=== PATIENT | female | born 1945 | race Caucasian/White ===

== ENCOUNTER 2016-12-08 09:29 | Outpatient (CLI) | payer MEDICARE ==
--- NOTE | 2016-12-08 14:10 | CT ---
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 FINDINGS: Axial images are obtained with coronal and sagittal reconstructions obtained. The frontal, ethmoid, maxillary, and sphenoid sinuses are well aerated. No evidence of masses or le sions seen in the nasal cavity. The cribriform plate appears to be unremarkable. The keila jesse is unremarkable. IMPRESSION: 1. Normal CT of sinuses and cribriform plate. 2. Incidentally noted bilateral briana bullosa changes seen in the middle turbinates. The nasal se ptum has mild [id number] septal deviation. POS: [facility]
== END 2016-12-08 09:30 | disposition home or self-care (01) ==
LOC: MADCT 09:29
DX: R43.0 Anosmia (principal)

== ENCOUNTER 2017-04-23 09:16 | Outpatient (CLI) | payer MEDICARE ==
[2017-04-23 09:59] LABS: ALT (SGPT) 13 U/L (8-55); AST (SGOT) 18 U/L (5-34); Albumin 3.6 g/dL (3.4-4.8); Alkaline Phosphatase 101 U/L (40-150); Anion Gap 10 mmol/L (10-20); BUN (Urea Nitrogen) 16 mg/dL (9.8-20.1); Bilirubin, Total 0.7 mg/dL (0.2-1.2); Calc. Creatinine Clearance 0 mL/min (70-130); Calcium 9.2 mg/dL (7.8-10.44); Carbon Dioxide 28 mmol/L (23-31); Cardiac Risk 2.9 (Less than 4.5); Chloride 107 mmol/L (98-107); Cholesterol 182 mg/dl (< 200 Desired); Estimated GFR-MDRD Greater than 90; Globulin 2.9 g/dL (2.4-3.5); Glucose 99 mg/dL (83-110); HDL Cholesterol 63 mg/dL (>60 Neg Risk); LDL Cholesterol, Calculated 102 mg/dL; Magnesium 1.9 mg/dL (1.6-2.6); Potassium 4.4 mmol/L (3.5-5.1); Protein, Total 6.5 g/dL (6.0-8.3); Sodium 141 mmol/L (136-145); Triglycerides 87 mg/dL (Less than 150)
== END 2017-04-23 09:17 | disposition home or self-care (01) ==
LOC: MADLAB 09:16
DX: I11.9 Hypertensive heart disease without heart failure (principal); I48.91 Unspecified atrial fibrillation; I34.0 Nonrheumatic mitral (valve) insufficiency; I49.40 Unspecified premature depolarization; R00.1 Bradycardia, unspecified
CPT/HCPCS: 36415; 80053; 80061; 83735

== ENCOUNTER 2018-01-08 11:53 | Outpatient (CLI) | payer MEDICARE | END 2018-01-08 11:54 | disposition home or self-care (01) | LOC: MADLAB 11:53 | PROVIDERS: ATTEND Internal Medicine Gastroenterology | DX: R10.84 Generalized abdominal pain (principal) | CPT/HCPCS: 82274 ==

== ENCOUNTER 2019-04-18 15:07 | Inpatient (IN) | payer MEDICARE ==
[2019-04-18 15:33] VITALS: BMI 33.0
[2019-04-18] MEDS ORDERED: traMADol HCl 50 MG TAB PO PRN (17:38)
[2019-04-18] MEDS ORDERED: Docusate 100 MG CAP PO PRN (17:38)
[2019-04-18] MEDS ORDERED: Zolpidem Tartrate 5 MG TAB PO PRN (17:38)
[2019-04-18] MEDS ORDERED: traMADol HCl 50 MG TAB PO SCH (18:00)
[2019-04-18] MEDS: HYDROcodone/Acetaminophen 10/325 mg Tablet PO PRN (19:49)
[2019-04-18] MEDS: Metoprolol Tartrate 25 MG TAB PO SCH (20:21)
[2019-04-18] MEDS ORDERED: diphenhydrAMINE 25 MG CAP PO SCH (21:00)
[2019-04-18] MEDS ORDERED: Acetaminophen 500 MG TAB PO SCH (21:00)
--- NOTE | 2019-04-19 01:23 | HP ---
PRIMARY CARE PHYSICIAN: Dr. Isaac in the [place]. ORTHOPEDICS: Dr. Oneal. REASON FOR ADMISSION: Skilled rehab in [facility] post surgery. HISTORY OF PRESENT ILLNESS AND HOSPITAL COURSE: Ms. Feliciano is a very pleasant 74-year-old female with significant history of chronic bilateral knee pain associated with progressively worsening arthritis in both knees noted for several years. After following up with her Ortho, Dr. Oneal, she decided to undergo surgical management this time as pain has been debilitating for her. The patient underwent bilateral total knee replacement for bilateral severe arthritis of knees on 04/15/2019. Postoperative course was unremarkable. The patient is weightbearing as tolerated and started putting some weight without significant issues. Overall, pain is adequately controlled with [place] alone. The patient reports that she does not take tramadol, which is part of her discharge medications, so we will cancel. No significant issues at this point. She just wanted to make sure that she will continuously get the ice pack for both knees as recommended from the hospital and will get her scheduled benadryl at bedtime for her insomnia. PAST MEDICAL HISTORY: Atrial fibrillation, on Xarelto and metoprolol; morbid obesity, status post gastric sleeves. CURRENT MEDICATIONS: 1. Acetaminophen with diphenhydramine 2 tablets at bedtime for insomnia. 2. Docusate 100 mg p.o. b.i.d. p.r.n. 3. Ferrous sulfate 325 mg p.o. b.i.d. 4. Hydrocodone/acetaminophen 10/325 mg p.o. q.4 hours p.r.n. 5. Metoprolol 25 mg p.o. b.i.d. 6. Ranitidine 150 mg p.o. daily. 7. Zolpidem tartrate 5 mg p.o. at bedtime p.r.n. PAST SURGICAL HISTORY: Appendectomy in 1968, right knee surgery in 1999, hysterectomy in 2000, left ankle surgery in 2011, right shoulder surgery in 1989 , right shoulder surgery in 2014, gastric sleeves in 2014, left carpal tunnel repair, heart LINQ implant in 2017. FAMILY HISTORY: Father has heart disease. Mother has heart disease and diabetes. SOCIAL HISTORY: Does not smoke. Occasional alcohol intake in the past. No illicit drug use. ALLERGIES: NKDA. REVIEW OF SYSTEMS: GENERAL: Denies fever, chills, lethargy. Reports decreased appetite noted since this recent hospitalization. HEENT: No acute visual changes or hearing changes. No cold symptoms. CARDIOVASCULAR: No chest pain. No shortness of breath. No dyspnea on exertion. No palpitations nor leg edema. LUNGS: No pain with breathing, cough, sputum production, or bloody sputum. GI: No nausea, vomiting, abdominal pain, diarrhea, rectal bleeding, melena, hematochezia, hematemesis. Reports constipation. GENITOURINARY: No dysuria, hematuria, frequency, or urgency. No incontinence. MUSCULOSKELETAL: As per HPI. NEUROLOGIC: No focal numbness, focal weakness, tics, tremors, or seizures. PSYCH: No depression or anxiety. Reports chronic insomnia. PHYSICAL EXAMINATION: VITAL SIGNS: Blood pressure 132/60, temperature 99.9, pulse 92, respirations 18 , and O2 sats 98%. Weight 192 pounds and 5 ounces. Height 5 feet 4 inches. GENERAL: The patient is awake, alert, and oriented x3, not in distress, comfortably resting in bed. No family member is at bedside. HEENT: Normocephalic, atraumatic. PERRL. Intact EOM. Anicteric sclerae. Clear nares. Oral mucosa is moist. No oral lesions. NECK: Supple. Full range of motion. No LAD. No JVD. No bruit. CHEST: Normal excursion. Clear to auscultation bilaterally. CARDIAC: Rate controlled. Normal S1 and S2. No murmurs. ABDOMEN: Soft, obese. Normoactive bowel sounds. Nondistended, nontender. No rebound. No guarding. Negative CVA tenderness. EXTREMITIES: No edema. No cyanosis. SKIN: Postoperative site on both knees are covered with clean dressing. No surrounding erythema with minimal surrounding edema. No significant redness. Not warm to touch. Pulses 2+ bilaterally. NEUROLOGIC: Nonfocal. DTRs 2+. Gait unsteady. ASSESSMENT AND PLAN: 1. Deconditioning secondary to general weakness. 2. Status post total hip replacement secondary to bilateral severe arthritis of knees. 3. Acute blood loss anemia, post-operatively. 4. Gastroesophageal reflux disease. 5. Atrial fibrillation, on long-term use of anticoagulant. Rate controlled. 6. Chronic insomnia. 7. Constipation. The patient is admitted to [facility] for skilled rehab. We will refer to PT and OT. We will continue current medications as modified per list. For Wound Care: . Do not change dressing until seen by Ortho. Continue ice pack bilaterally as recommended. Referred to Dr. Oneal in 2 weeks for followup. We will add polyethylene glycol for constipation regimen. Further recommendations depending on the hospital course. ESTIMATED LENGTH OF STAY: 2 to 3 weeks. CODE STATUS: The patient reports FULL CODE. . Job ID: [id number] MTDD
[2019-04-19] MEDS: Ferrous Sulfate 325 MG TAB PO SCH ×2 (08:12→16:36)
[2019-04-19] MEDS: Metoprolol Tartrate 25 MG TAB PO SCH ×2 (09:23→20:51)
[2019-04-19] MEDS: Rivaroxaban 10 MG TAB PO SCH (09:23)
[2019-04-19] MEDS: Famotidine 20 MG TAB PO SCH (09:23)
[2019-04-19] MEDS: Multivitamin W/ Minerals 1 TAB PO SCH (09:23)
[2019-04-19] MEDS: Polyethylene Glycol 3350 17 GM Packet PO SCH (09:23)
[2019-04-19] MEDS: HYDROcodone/Acetaminophen 10/325 mg Tablet PO PRN (14:47)
[2019-04-19] MEDS ORDERED: Acetaminophen 325 MG TAB PO PRN (19:49)
[2019-04-19] MEDS: diphenhydrAMINE 25 MG CAP PO SCH (20:51)
[2019-04-20] MEDS: HYDROcodone/Acetaminophen 10/325 mg Tablet PO PRN ×4 (00:14→20:04)
[2019-04-20] MEDS: Rivaroxaban 10 MG TAB PO SCH (08:19)
[2019-04-20] MEDS: Famotidine 20 MG TAB PO SCH (08:19)
[2019-04-20] MEDS: Metoprolol Tartrate 25 MG TAB PO SCH ×2 (08:19→20:04)
[2019-04-20] MEDS: Multivitamin W/ Minerals 1 TAB PO SCH (08:19)
[2019-04-20] MEDS: Ferrous Sulfate 325 MG TAB PO SCH ×2 (08:20→17:09)
[2019-04-20] MEDS: Polyethylene Glycol 3350 17 GM Packet PO SCH (08:20)
[2019-04-20] MEDS: diphenhydrAMINE 25 MG CAP PO SCH (20:04)
[2019-04-21] MEDS: HYDROcodone/Acetaminophen 10/325 mg Tablet PO PRN ×2 (08:22→19:21)
[2019-04-21] MEDS: Metoprolol Tartrate 25 MG TAB PO SCH ×2 (08:24→21:07)
[2019-04-21] MEDS: Multivitamin W/ Minerals 1 TAB PO SCH (08:24)
[2019-04-21] MEDS: Rivaroxaban 10 MG TAB PO SCH (08:24)
[2019-04-21] MEDS: Ferrous Sulfate 325 MG TAB PO SCH ×2 (08:24→17:00)
[2019-04-21] MEDS: Famotidine 20 MG TAB PO SCH (08:24)
[2019-04-21] MEDS: Polyethylene Glycol 3350 17 GM Packet PO SCH (08:24)
[2019-04-21] MEDS: diphenhydrAMINE 25 MG CAP PO SCH (21:07)
[2019-04-22] MEDS: HYDROcodone/Acetaminophen 10/325 mg Tablet PO PRN ×4 (02:22→20:06)
[2019-04-22] MEDS: Metoprolol Tartrate 25 MG TAB PO SCH ×2 (08:20→20:07)
[2019-04-22] MEDS: Multivitamin W/ Minerals 1 TAB PO SCH (08:21)
[2019-04-22] MEDS: Famotidine 20 MG TAB PO SCH (08:21)
[2019-04-22] MEDS: Ferrous Sulfate 325 MG TAB PO SCH ×2 (08:21→16:48)
[2019-04-22] MEDS: Polyethylene Glycol 3350 17 GM Packet PO SCH (08:23)
[2019-04-22] MEDS: Rivaroxaban 10 MG TAB PO SCH (08:23)
[2019-04-22] MEDS: diphenhydrAMINE 25 MG CAP PO SCH (20:08)
[2019-04-23] MEDS: Famotidine 20 MG TAB PO SCH (07:20)
[2019-04-23] MEDS: Metoprolol Tartrate 25 MG TAB PO SCH ×2 (07:20→20:26)
[2019-04-23] MEDS: Rivaroxaban 10 MG TAB PO SCH (07:20)
[2019-04-23] MEDS: Multivitamin W/ Minerals 1 TAB PO SCH (07:20)
[2019-04-23] MEDS: Ferrous Sulfate 325 MG TAB PO SCH ×2 (07:20→17:14)
[2019-04-23] MEDS: HYDROcodone/Acetaminophen 10/325 mg Tablet PO PRN ×3 (07:21→20:25)
[2019-04-23] MEDS: Polyethylene Glycol 3350 17 GM Packet PO SCH (07:21)
[2019-04-23] MEDS: diphenhydrAMINE 25 MG CAP PO SCH (20:25)
[2019-04-24] MEDS: HYDROcodone/Acetaminophen 10/325 mg Tablet PO PRN ×3 (06:16→20:35)
[2019-04-24] MEDS: Multivitamin W/ Minerals 1 TAB PO SCH (08:07)
[2019-04-24] MEDS: Metoprolol Tartrate 25 MG TAB PO SCH ×2 (08:08→20:37)
[2019-04-24] MEDS: Rivaroxaban 10 MG TAB PO SCH (08:08)
[2019-04-24] MEDS: Polyethylene Glycol 3350 17 GM Packet PO SCH (08:08)
[2019-04-24] MEDS: Famotidine 20 MG TAB PO SCH (08:08)
[2019-04-24] MEDS: Ferrous Sulfate 325 MG TAB PO SCH ×2 (08:10→17:05)
[2019-04-24] MEDS: diphenhydrAMINE 25 MG CAP PO SCH (20:37)
[2019-04-25] MEDS: Ferrous Sulfate 325 MG TAB PO SCH ×2 (08:16→16:37)
[2019-04-25] MEDS: Rivaroxaban 10 MG TAB PO SCH (08:17)
[2019-04-25] MEDS: Polyethylene Glycol 3350 17 GM Packet PO SCH (08:17)
[2019-04-25] MEDS: Multivitamin W/ Minerals 1 TAB PO SCH (08:17)
[2019-04-25] MEDS: Famotidine 20 MG TAB PO SCH (08:17)
[2019-04-25] MEDS: Metoprolol Tartrate 25 MG TAB PO SCH ×2 (08:17→21:32)
[2019-04-25] MEDS: HYDROcodone/Acetaminophen 10/325 mg Tablet PO PRN ×2 (08:20→21:33)
[2019-04-25] MEDS: diphenhydrAMINE 25 MG CAP PO SCH (21:32)
[2019-04-26] MEDS: Rivaroxaban 10 MG TAB PO SCH (08:41)
[2019-04-26] MEDS: Multivitamin W/ Minerals 1 TAB PO SCH (08:41)
[2019-04-26] MEDS: Famotidine 20 MG TAB PO SCH (08:41)
[2019-04-26] MEDS: Ferrous Sulfate 325 MG TAB PO SCH ×2 (08:41→17:23)
[2019-04-26] MEDS: Polyethylene Glycol 3350 17 GM Packet PO SCH (08:41)
[2019-04-26] MEDS: Metoprolol Tartrate 25 MG TAB PO SCH ×2 (08:41→21:23)
[2019-04-26] MEDS ORDERED: Loperamide HCl 2 MG CAP PO SCH (13:15)
[2019-04-26] MEDS ORDERED: Loperamide HCl 2 MG CAP PO PRN (16:00)
[2019-04-26] MEDS: diphenhydrAMINE 25 MG CAP PO SCH (21:23)
[2019-04-26] MEDS: HYDROcodone/Acetaminophen 10/325 mg Tablet PO PRN (21:23)
[2019-04-27] MEDS: Metoprolol Tartrate 25 MG TAB PO SCH ×2 (08:47→19:59)
[2019-04-27] MEDS: Rivaroxaban 10 MG TAB PO SCH (08:47)
[2019-04-27] MEDS: Famotidine 20 MG TAB PO SCH (08:47)
[2019-04-27] MEDS: Ferrous Sulfate 325 MG TAB PO SCH ×2 (08:47→15:49)
[2019-04-27] MEDS: Multivitamin W/ Minerals 1 TAB PO SCH ×2 (08:48→15:49)
[2019-04-27] MEDS: Polyethylene Glycol 3350 17 GM Packet PO SCH (08:48)
[2019-04-27] MEDS ORDERED: Loratadine 10 MG TAB PO SCH (11:00)
[2019-04-27] MEDS: HYDROcodone/Acetaminophen 10/325 mg Tablet PO PRN (19:59)
[2019-04-27] MEDS: diphenhydrAMINE 25 MG CAP PO SCH (19:59)
[2019-04-28] MEDS: Multivitamin W/ Minerals 1 TAB PO SCH (08:46)
[2019-04-28] MEDS: Ferrous Sulfate 325 MG TAB PO SCH (08:46)
[2019-04-28] MEDS: Famotidine 20 MG TAB PO SCH (08:46)
[2019-04-28] MEDS: Rivaroxaban 10 MG TAB PO SCH (08:46)
[2019-04-28] MEDS: Metoprolol Tartrate 25 MG TAB PO SCH (08:46)
[2019-04-28] MEDS: Polyethylene Glycol 3350 17 GM Packet PO SCH (08:46)
[2019-04-28] MEDS ORDERED: Loratadine 10 MG TAB PO SCH (09:00)
[2019-04-28 09:12] VITALS: BP 104/57; TEMP 98
--- NOTE | 2019-04-28 22:08 | DIS ---
DATE OF ADMISSION: 04/18/2019 DATE OF DISCHARGE: 04/28/2019 REASON FOR ADMISSION: Skilled rehab in [facility] post surgery. DIAGNOSES: 1. Deconditioning secondary to general weakness. 2. Status post total knee replacement secondary to bilateral severe arthritis of knees. 3. Acute blood loss anemia postoperatively, stable. 4. Chronic knee pain secondary to severe arthritis status post total knee replacement. SECONDARY DIAGNOSES: 1. Chronic gastroesophageal reflux. 2. Atrial fibrillation, long-term use of anticoagulant, rate controlled. 3. Chronic insomnia. 4. Constipation. MEDICATIONS: 1. [place] 10/325 mg 1 tablet daily to b.i.d. p.r.n. for pain. 2. Acetaminophen with diphenhydramine and hydrochlorothiazide 2 tablets at bedtime for insomnia. 3. Docusate 100 mg p.o. b.i.d. p.r.n. 4. Ferrous sulfate 325 mg p.o. b.i.d. 5. Metoprolol 25 mg p.o. b.i.d. 6. Ranitidine 150 mg p.o. daily. CONDITION ON DISCHARGE: Stable. DISPOSITION: Home. DISCHARGE INSTRUCTIONS: 1. Activity to use rolling walker at all times. 2. Fall precautions. 3. Follow up with PCP, Dr. Go in 1 week. 4. Follow up with Dr. Oneal on 05/05/2019 at 10:45 a.m. 5. Lissette to be removed by Ortho per order upon followup on 05/05/2019. 6. Change dressing daily p.r.n. 7. To notify Ortho or PCP with acute changes in the appearance of the wound prior to Ortho followup. HISTORY OF THE PRESENT ILLNESS AND HOSPITAL COURSE: Ms. Feliciano is a very pleasant 74-year-old female with history of chronic knee pain secondary to severe arthritis. She underwent total knee replacement on 04/15/[address] Oneal. The patient's postoperative course was unremarkable except for anemia secondary to acute blood loss. The patient was started on iron supplement. The patient was subsequently transferred to [facility] for skilled rehab. The patient was weightbearing as tolerated. The patient's pain was adequately controlled with 1-2 [place] per day p.r.n. The patient significantly improved in overall functional status during the rehab. She was walking about 600 feet with use of rolling walker prior to discharge. The patient, overall, made a significant improvement with gait, strength, and endurance prior to discharge. Therapy goal was almost met, but not completely, recommending further therapy at home via home health. The patient made a self-arrangement with guardian for home health prior to discharge. She had all the DME needed including rolling walkers and toilet seat that she herself had procured prior to discharge. She will follow up with Dr. Oneal as directed. Prior to discharge, we confirmed with Dr. Oneal if lissette will be removed by him upon followup, which he confirmed. The patient will continue monitoring her postoperative wound on a daily basis and to report with any acute changes, signs of infection to either her PCP or Ortho directly. She remains at risk for falls secondary to unsteadiness of her gait at this time and highly cautioned to use her rolling walker at all times. Other chronic medical condition remained stable with current medications during her hospital stay. VITAL SIGNS PRIOR TO DISCHARGE: Blood pressure 104/57, temp 98, pulse 81, respirations 16, O2 sats 97% on room air. Weight 194 pounds and 7 ounces. Height 5 feet 4 inches. TIME SPENT: Time spent on this discharge in examining the patient and coordinating care, 32 minutes. Job ID: [id number]
== END 2019-04-28 14:15 | disposition home health service (06) | DRG 560 ==
LOC: MADMS 15:07
PROVIDERS: ADMIT Family Medicine; ATTEND Family Medicine
DX: Z47.1 Aftercare following joint replacement surgery (principal); D62 Acute posthemorrhagic anemia; I48.91 Unspecified atrial fibrillation; E66.01 Morbid (severe) obesity due to excess calories; R53.81 Other malaise; R53.1 Weakness; K21.9 Gastro-esophageal reflux disease without esophagitis; F51.04 Psychophysiologic insomnia; G47.00 Insomnia, unspecified; Z98.84 Bariatric surgery status; Z90.49 Acquired absence of other specified parts of digestive tract; Z90.710 Acquired absence of both cervix and uterus
CPT/HCPCS: Q0163